=== PATIENT | male | born 1935 | race Caucasian/White ===

== ENCOUNTER → 2019-06-25 | Outpatient (CLI) | payer OTHER ==
[~2019-06-25] MED LIST: ASPIR 8181 MG PO; ASPIRIN EC325 M1 PO; CALCIUM 600 +1 EAC1 PO; CITRUCEL CAPLET1 TA1 PO; CITRUCEL CLEAR539 G1; COZAAR 50 MG TA50 M1 PO; FISH OIL 1,001000 M2 PO; FISHOIL; FLEXERIL PO; FLOMAX0.4 MG PO; GLUCOSAMINE CH1 EAC7 PO; LEVOTHYROXINE0.05 MG; LEVOTHYROXINE0.05 MG PO; LIPITOR20 MG PO; MIRALAX17 GM PO; MULTIVITAMINS PO; OCUVITE LUTEIN1 EAC1 PO; PLAVIX 75 MG TA75 M1 PO; RAPIFLUX20 MG PO; TAMSULOSIN HCL0.4 M1; TUMS PO; VITAMIN D2000 UNIT PO; ZOCOR20 MG PO; ZOLOFT 50 MG TA50 MG PO; ZYRTEC10 M4 PO; citrucel PO
--- NOTE | 2019-06-25 13:50 | 2DMMODE ---
[place] [address] 2 D/M-MODE ECHOCARDIOGRAM Name: AMBERLYILEANA R Room: [facility]#: [id number] Admission: 06/25/19 Attend Phys: Manuel Ventura, Discharge: Date of : 39 Date of Service: 06/25/19 1349 Report #: [id number] THIS REPORT FOR: cc: Demond Lozano MD, Anthony MD Liston, Michael J. MD [facility] ~ APPROVED REPORT Study performed: 06/25/2019 09:05:50 EXAM: Comprehensive 2D, Doppler, and color-flow Echocardiogram Patient Location: Out-Patient BSA: 2.34 HR: 60 bpm BP: 138/72 mmHg Other Information Study Quality: Good Indications Atrial Fibrillation 2D Dimensions IVSd: 10.91 (7-11mm) LVOT Diam: 20.72 (18-24mm) LVDd: 57.18 mm PWd: 8.34 (7-11mm) Ascending Ao: 31.81 (22-36mm) LVDs: 37.60 (25-40mm) Aortic Root: 26.59 mm Volumes Left Atrial Volume (Systole) LA ESV Index: 15.90 mL/m2 Aortic Valve AoV Peak Warner.: 1.24 m/s AO Peak Gr.: 6.16 mmHg LVOT Max P.80 mmHg AO Mean Gr.: 3.35 mmHg LVOT Mean P.55 mmHg LVOT Max V: 1.10 m/s AO V2 VTI: 26.01 cm LVOT Mean V: 0.74 m/s LAILA (VTI): 2.59 cm2 LVOT V1 VTI: 19.99 cm Mitral Valve E/A Ratio: 0.54 [place] [address] 2 D/M-MODE ECHOCARDIOGRAM Name: ILEANA GAMING Room: [facility]#: [id number] Admission: 06/25/19 Attend Phys: Manuel Ventura, Discharge: Date of : 39 Date of Service: 06/25/19 1349 Report #: [id number] MV Decel. Time: 372.95 ms MV E Max Warner.: 0.62 m/s MV PHT: 108.16 ms MVA (PHT): 2.03 cm2 TDI E/Lateral E': 7.75 E/Medial E': 6.20 Medial E' Warner.: 0.10 m/s Lateral E' Warner.: 0.08 m/s Pulmonary Valve PV Peak Warner.: 1.13 m/s PV Peak Gr.: 5.09 mmHg Tricuspid Valve RAP Estimate: 5.00 mmHg TR Peak Gr.: 17.88 mmHg RVSP: 22.88 mmHg PA Pressure: 22.88 mmHg Left Ventricle The left ventricle is normal size. There is normal LV segmental wall motion. There is normal left ventricular wall thickness. Left ventricular systolic function is normal. LVEF is 65-70%. Grade I - abnormal relaxation pattern. Right Ventricle The right ventricle is normal size. The right ventricular systolic function is normal. Atria Left atrium is mildly dilated. The right atrium size is normal. Aortic Valve Aortic valve is mildly calcified. No aortic regurgitation is present. There is no aortic valvular stenosis. Mitral Valve Mild mitral annular calcification. There is no mitral valve regurgitation noted. No evidence of mitral valve stenosis. Tricuspid Valve The tricuspid valve is normal in structure. Mild tricuspid regurgitation. No pulmonary hypertension. Pulmonic Valve The pulmonary valve is normal in structure. There [place] [address] 2 D/M-MODE ECHOCARDIOGRAM Name: ILEANA GAMING Room: [facility]#: [id number] Admission: 06/25/19 Attend Phys: Manuel Ventura, Discharge: Date of : 39 Date of Service: 06/25/19 1349 Report #: [id number] valvular regurgitation. Great Vessels The aortic root is normal in size. IVC is normal in size and collapses >50% with inspiration. Pericardium There is no pericardial effusion. <Conclusion> The left ventricle is normal size. There is normal left ventricular wall thickness. Left ventricular systolic function is normal. LVEF is 65-70%. Grade I - abnormal relaxation pattern. Left atrium is mildly dilated. Aortic valve is mildly calcified. There is no aortic valvular stenosis. Mild mitral annular calcification. Mild tricuspid regurgitation. No pulmonary hypertension. IVC is normal in size and collapses >50% with inspiration. <ELECTRONICALLY SIGNED> By: Manuel Ventura MD, FACC 06/25/19 1349 1349 1349 Manuel Ventura MD, FACC /INF
== END ==
LOC: M.CRD 08:57
DX: I08.3 Combined rheumatic disorders of mitral, aortic and tricuspid valves (principal); I48.91 Unspecified atrial fibrillation